=== PATIENT | female | born 2000 | race Caucasian/White ===

== ENCOUNTER 2019-06-28 11:55 | Emergency (ER) | payer SELFPAY ==
[2019-06-28 12:00] VITALS: BP 120/68; PULSE 80; TEMP 98; BMI 29.0
--- NOTE | 2019-06-28 12:47 | PDOC ---
History of Present Illness - General Chief Complaint: Vaginal Sxs Stated Complaint: VAGINAL PAIN Time Seen by Provider: 06/28/19 12:03 History Source: Patient Exam Limitations: No Limitations - History of Present Illness Travel History: No Initial Comments: 06/28/19 12:46 HISTORY OF PRESENT ILLNESS: Is a 18-year-old woman denies medical history presents to the emergency department for evaluation of dysuria and pain to her vagina for the past 4 to 5 days. Patient was seen and evaluated by her primary doctor who gave her triamcinolone cream and prednisone. She reports having a rash to her vagina extending into her inner thigh. Patient denies any fevers, chills, back pain, vaginal bleeding, vaginal discharge. Patient reports she is currently sexually active with one male partner over the past few months and reports having protected oral and vaginal intercourse every time throughout her relationship. No recent travel or sick contacts. PAST MEDICAL HISTORY: Denies past medical history SURGICAL HISTORY: Denies ALLERGIES: No known drug allergies REVIEW OF SYSTEMS General/Constitutional: Denies fever or chills. Denies weakness, weight change. HEENT: Denies change in vision. Denies ear pain or discharge. Denies sore throat. Cardiovascular: Denies chest pain or shortness of breath. Respiratory: Denies cough, wheezing, or hemoptysis. Gastrointestinal: Denies nausea, vomiting, diarrhea or constipation. Denies rectal bleeding. Genitourinary: See HPI Musculoskeletal: Denies joint or muscle swelling or pain. Denies neck or back pain. Skin and breasts: Denies rash or easy bruising. Neurologic: Denies headache, vertigo, loss of consciousness, or loss of sensation. Psychiatric: Denies depression or anxiety. Endocrine: Denies increased thirst. Denies abnormal weight change. Hematologic/Lymphatic: Denies anemia, easy bleeding, or history of blood clots. Allergic/Immunologic: Denies hives or skin allergy. Denies latex allergy. PHYSICAL EXAM General Appearance: Well-appearing, appropriately dressed. No apparent distress , no intoxication. HEENT: EOMI, PERRLA, normal ENT inspection, normal voice, TMs normal, pharynx normal. No conjunctival pallor. No photophobia, scleral icterus. Neck: Supple. Trachea midline. No tenderness, rigidity, carotid bruit, stridor , lymphadenopathy, or thyromegaly. Respiratory/Chest: Lungs CTAB. No shortness of breath, chest tenderness, respiratory distress, accessory muscle use. No crackles, rales, rhonchi, stridor , wheezing, dullness Cardiovascular: RRR. S1, S2. No JVD, murmur, bradycardia, tachycardia. Vascular Pulses: Dorsalis-Pedis (R): 2+, Dorsalis-Pedis (L): 2+ Gastrointestinal/Abdominal: Normal bowel sounds. Abdomen soft, non-distended. No tenderness or rebound tenderness. No organomegaly, pulsatile mass, guarding, hernia, hepatomegaly, splenomegaly. Lymphatic: No adenopathy, tenderness. Musculoskeletal/Extremities: Normal inspection. FROM of all extremities, normal capillary refill. Pelvis Stable. No CVA tenderness. No tenderness to extremities, pedal edema, swelling, erythema or deformity. Integumentary: Appropriate color, dry, warm. No cyanosis, erythema, jaundice or rash Neurologic: partnership manager II-XII intact. Fully oriented, alert. Appropriate mood/affect. Motor strength 5/5. No appreciable EOM palsy, facial droop or sensory deficit. Past History - Past Medical History Allergies/Adverse Reactions: Allergies Allergy/AdvReac Type Severity Reaction Status Date / Time No Known Allergies Allergy Verified 06/28/19 12:00 Home Medications: Ambulatory Orders Fluconazole 150 mg PO ONCE #1 tablet 06/28/19 Valacyclovir HCl [Valtrex -] 1,000 mg PO BID #20 tablet 06/28/19 COPD: No - Psycho Social/Smoking Cessation Hx Smoking History: Never smoked *Physical Exam - Vital Signs Last Vital Signs Temp Pulse Resp BP Pulse Ox 98 F 80 18 120/68 100 06/28/19 11:57 06/28/19 11:57 06/28/19 11:57 06/28/19 11:57 06/28/19 11:57 - Physical Exam General Appearance: Yes: Appropriately Dressed. No: Apparent Distress Comments:: 06/28/19 13:16 RN Lasha present as refractory tile helper during pelvic exam. Female Pelvic Exam: positive: cervical os closed, normal adnexa, normal size ovaries, discharge (Thick white caseous discharge present in the vaginal vault) . negative: normal external exam (Excoriated tissue present to the rights outer labia extending into the inner thigh. Scant vesicular lesions present in the excoriated areas whose appearance is consistent with HSV-2 infection), CMT, Bartholin mass, adnexal tenderness, vaginal bleeding Gastrointestinal/Abdominal: positive: Normal Bowel Sounds, Soft. 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 Will discharge home with prescriptions for Diflucan and valacyclovir. I discussed the physical exam findings, ancillary test results and final diagnoses with the patient. I answered all of the patient's questions. The patient was satisfied with the care received and felt comfortable with the discharge plan and treatment plan. The patient will call their primary care physician within 24 hours to arrange follow-up and will return to the Emergency Department with any new, persistent or worsening symptoms. Discharge - Discharge Information Problems reviewed: Yes Clinical Impression/Diagnosis: Vaginal candidiasis Genital herpes Qualifiers: Herpes simplex infection site: vulvovaginitis Qualified Code(s): A60.04 - Herpesviral vulvovaginitis Condition: Stable Disposition: HOME - Admission No - Additional Discharge Information Prescriptions: Fluconazole 150 mg PO ONCE #1 tablet Valacyclovir HCl [Valtrex -] 1,000 mg PO BID #20 tablet - Follow up/Referral CallBack Reminder: f/u cultures/HSV - Patient Discharge Instructions Additional Instructions: You been treated today with azithromycin 1 g by mouth for treatment of presumed chlamydia You have been treated with Rocephin 250 mg injection for treatment of presumned gonorrhea The herpes, gonorrhea and chlamydia testing will not be completed for the next few days. You may call [phone] and leave message for return phone call with lab results. Be sure to be clear with your name, birthdate, and phone number. Valacyclovir 1 g twice a day for the next 10 days. Fluconazole 150 mg once orally on 07/01 Always use condoms with the partners Followup with [employer] or PMD in one week for reevaluation and retesting. - Post Discharge Activity
[2019-06-28] MEDS ORDERED: FLUCONAZOLE 150 MG TABLET PO ONE ×2 (13:23→13:27)
[2019-06-28] MEDS ORDERED: AZITHROMYCIN 250 MG TABLET PO ONE (13:23)
[2019-06-28] MEDS ORDERED: AZITHROMYCIN 500 MG TABLET ONE (13:27)
[2019-06-28] MEDS ORDERED: LIDOCAINE HCL 1%, 10 MG/ML (20ML VIAL) ONE (13:28)
[2019-06-28 13:54] LABS: URINE APPEARANCE CLEAR; URINE BILIRUBIN NEGATIVE (NEGATIVE); URINE COLOR YELLOW; URINE GLUCOSE (UA) NEGATIVE (NEGATIVE); URINE KETONE NEGATIVE (NEGATIVE); URINE LEUK ESTERASE NEGATIVE (NEGATIVE); URINE NITRITE NEGATIVE (NEGATIVE); URINE PROTEIN NEGATIVE (NEGATIVE); URINE UROBILINOGEN 0.2 mg/dL (0.2-1.0)
== END 2019-06-28 14:13 | disposition home or self-care (01) ==
LOC: JERFT 11:55
DX: B37.3 Candidiasis of vulva and vagina (principal); A60.04 Herpesviral vulvovaginitis
CPT/HCPCS: 36415; 81003; 84703; 87070; 87086; 87205; 87491; 87529; 87591; 99283-25

== ENCOUNTER 2021-05-13 01:30 | Emergency (ER) | payer OTHER ==
[2021-05-13 02:07] VITALS: BP 121/82; PULSE 83; TEMP 98.3; BMI 32.1
[2021-05-13] MEDS ORDERED: ACETAMINOPHEN 325 MG TABLET (FP) PO ONE (02:49)
[2021-05-13] MEDS ORDERED: ACETAMINOPHEN 325 MG TABLET (FP) ONE (02:55)
[2021-05-13] MEDS ORDERED: LIDOCAINE 5% TOPICAL PATCH TP ONE (03:06)
[2021-05-13] MEDS ORDERED: LIDOCAINE 5% TOPICAL PATCH ONE (03:15)
[2021-05-13] MEDS ORDERED: METHOCARBAMOL 500 MG TABLET PO ONE (03:28)
[2021-05-13] MEDS ORDERED: METHOCARBAMOL 500 MG TABLET ONE (03:37)
[2021-05-13] MEDS ORDERED: LIDOCAINE PATCH REMOVAL MC SCH (22:00)
== END 2021-05-13 03:43 | disposition home or self-care (01) ==
LOC: JER 01:30
DX: M54.2 Cervicalgia (principal); V49.50XA Passenger injured in collision with unspecified motor vehicles in traffic accident, initial encounter
CPT/HCPCS: 99283-25

== ENCOUNTER 2022-05-15 09:20 | Emergency (ER) | payer OTHER ==
[2022-05-15 09:25] VITALS: BP 125/91; PULSE 101; RESP 18; TEMP 98; BMI 30.9
[2022-05-15] MEDS ORDERED: FLUCONAZOLE 150 MG TABLET PO ONE ×2 (10:14→10:26)
[2022-05-15 11:25] LABS: EPI CELLS 33 /uL (0-25.1); HYALINE CASTS 0 /uL (0-3.1); URINE APPEARANCE CLEAR; URINE BACTERIA 207 /uL (0-1359); URINE BILIRUBIN NEGATIVE (NEGATIVE); URINE COLOR YELLOW; URINE GLUCOSE (UA) NEGATIVE (NEGATIVE); URINE KETONE NEGATIVE (NEGATIVE); URINE LEUK ESTERASE 1+ (NEGATIVE); URINE NITRITE NEGATIVE (NEGATIVE); URINE PROTEIN NEGATIVE (NEGATIVE); URINE RBC 2 /uL (0-23.9); URINE UROBILINOGEN 0.2 mg/dL (0.2-1.0); URINE WBC 7 /uL (0-25.8)
== END 2022-05-15 11:37 | disposition home or self-care (01) ==
LOC: JERFT 09:20
DX: N39.0 Urinary tract infection, site not specified (principal)
CPT/HCPCS: 36415; 81003; 87077; 87086; 87491; 87591; 87661; 99283-25

== ENCOUNTER 2022-11-02 23:05 | Emergency (ER) | payer OTHER ==
[2022-11-02 23:10] VITALS: BP 139/88; PULSE 65; RESP 18; TEMP 98; BMI 32.3
== END 2022-11-03 01:30 | disposition left against medical advice (07) ==
LOC: JER 23:05
DX: R05.9 Cough, unspecified (principal); J34.89 Other specified disorders of nose and nasal sinuses
CPT/HCPCS: 99281-25

== ENCOUNTER → 2024-03-31 | Emergency (ER) | payer OTHER ==
[2024-03-31 11:45] VITALS: BP 125/83; PULSE 107; RESP 20; TEMP 98.4; BMI 38.5
[2024-03-31 14:27] LABS: THROAT:GRP A STREP NOT DETECTED (NOTDETECTED)
== END | disposition left against medical advice (07) ==
LOC: JERFT 11:40
DX: O99.513 Diseases of the respiratory system complicating pregnancy, third trimester (principal); J00 Acute nasopharyngitis [common cold]; J06.9 Acute upper respiratory infection, unspecified; O99.891 Other specified diseases and conditions complicating pregnancy; R09.81 Nasal congestion; R05.9 Cough, unspecified; Z3A.31 31 weeks gestation of pregnancy; Z20.822 Contact with and (suspected) exposure to COVID-19
CPT/HCPCS: 0241U-QW; 87651; 99283-25

== ENCOUNTER 2024-05-06 08:23 | Inpatient (IN) | payer OTHER ==
[2024-05-06] MEDS: LACTATED RINGERS SOLUTION 1,000 ML IV SCH (09:30)
[2024-05-06 09:36] LABS: BASO % 0.3 % (0-2.0); EOS % 1.3 % (0-4.5); HEMATOCRIT 36.7 % (32.4-45.2); HEMOGLOBIN 12.2 GM/dL (10.7-15.3); LYMPH % 20.5 % (8-40); MCH 28.8 pg (25.7-33.7); MCHC 33.2 g/dl (32.0-36.0); MEAN CELL VOLUME 86.7 fl (80-96); MEAN PLT VOLUME 9.6 fl (7.5-11.1); MONO % 5.8 % (3.8-10.2); NEUT % 72.1 % (42.8-82.8); PLATELET COUNT 248 10^3/uL (134-434); RBC 4.23 M/mm3 (3.60-5.2); RDW 14.5 % (11.6-15.6); WHITE BLOOD COUNT 12.7 K/mm3 (4.0-10.0)
[2024-05-06 09:55] LABS: INR 0.94 (0.83-1.09); PROTHROMBIN TIME (PATIENT) 10.6 SEC (9.7-13.0)
[2024-05-06 09:57] LABS: ACTIVATED PTT 26.8 SECONDS (25.2-36.5)
[2024-05-06 09:59] LABS: POTASSIUM 3.8 mmol/L (3.5-5.1)
[2024-05-06] MEDS ORDERED: OXYTOCIN 30 UNITS in 0.9% NS 30 UNIT/500 ML INFUS.BAG IVPB ONE (10:00)
[2024-05-06] MEDS: OXYTOCIN 30 UNITS in 0.9% NS 30 UNIT/500 ML INFUS.BAG IVPB SCH (10:00)
[2024-05-06 10:01] LABS: ALBUMIN 2.6 g/dl (3.4-5.0); BLOOD UREA NITROGEN 11.4 mg/dL (7-18); CALCIUM 9.2 mg/dL (8.5-10.1)
[2024-05-06 10:05] LABS: CREATININE 0.6 mg/dL (0.55-1.3)
[2024-05-06 10:06] LABS: BILIRUBIN,TOTAL 0.6 mg/dL (0.2-1); TOT PROT 7.1 g/dl (6.4-8.2)
[2024-05-06 10:26] VITALS: BMI 40.1
[2024-05-06] MEDS ORDERED: FENTANYL/BUPIVACAINE/NS/PF - PCEA - 50 ML DISP.SYRIN EP ONE (17:20)
[2024-05-06] MEDS ORDERED: NALOXONE HCL 0.4 MG/ML VIAL IVPUSH PRN (17:21)
[2024-05-06] MEDS ORDERED: BUPIVACAINE HCL/PF 0.25% (2.5MG/ML) 10 ML VIAL ONE ×2 (17:22→21:28)
[2024-05-06] MEDS ORDERED: FENTANYL CITRATE/PF 50 MCG/ML VIAL ONE ×2 (17:22→21:28)
[2024-05-06] MEDS: FENTANYL/BUPIVACAINE/NS/PF - PCEA - 50 ML DISP.SYRIN EP SCH (17:45)
[2024-05-06] MEDS ORDERED: LIDOCAINE HCL 1% PRESERVATIVE FREE - 30ML VIAL ONE (23:16)
[2024-05-06] MEDS: OXYTOCIN 20 UNITS in 0.9% NS 20 UNIT/1,000 ML INFUS.BAG IV SCH (23:21)
[2024-05-06] MEDS ORDERED: METHYLERGONOVINE MALEATE 0.2 MG/1 ML AMP IM PRN (23:45)
[2024-05-06] MEDS ORDERED: BENZOCAINE 28 GM HEMORRHOIDAL OINTMENT TP PRN (23:45)
[2024-05-06] MEDS ORDERED: BENZOCAINE 20% 57 GM BOTTLE TP PRN (23:45)
[2024-05-06] MEDS ORDERED: WITCH HAZEL 50% (TUCKS) 40 PAD/JAR PAD TP PRN (23:45)
[2024-05-06] MEDS ORDERED: BISACODYL 10 MG SUPP.RECT RC PRN (23:45)
[2024-05-07] MEDS ORDERED: ACETAMINOPHEN 325 MG TABLET (FP) ONE (01:10)
[2024-05-07] MEDS: ACETAMINOPHEN 325 MG TABLET (FP) PO PRN (01:13)
[2024-05-07] MEDS: oxyCODONE HCL 5 MG TABLET PO PRN (01:49)
[2024-05-07] MEDS: ELECTROLYTE-148 SOLN 1,000 ML IV SCH (01:50)
[2024-05-07 08:48] LABS: BASO % 0.2 % (0-2.0); EOS % 0.1 % (0-4.5); HEMATOCRIT 32.4 % (32.4-45.2); HEMOGLOBIN 10.4 GM/dL (10.7-15.3); LYMPH % 16.3 % (8-40); MCH 27.9 pg (25.7-33.7); MCHC 32.1 g/dl (32.0-36.0); MEAN CELL VOLUME 86.9 fl (80-96); MEAN PLT VOLUME 9.9 fl (7.5-11.1); MONO % 9.9 % (3.8-10.2); NEUT % 73.5 % (42.8-82.8); PLATELET COUNT 222 10^3/uL (134-434); RBC 3.73 M/mm3 (3.60-5.2); RDW 14.6 % (11.6-15.6); WHITE BLOOD COUNT 15.1 K/mm3 (4.0-10.0)
[2024-05-07] MEDS: PRENATAL VITAMINS W/ FOLIC ACID TABLET (FP) PO SCH (10:04)
[2024-05-07] MEDS: FERROUS SO4 325 MG TABLET (FP) PO SCH (10:04)
[2024-05-07] MEDS: IBUPROFEN 600 MG TABLET (FP) PO PRN (10:04)
[2024-05-07 14:04] VITALS: RESP 18
[2024-05-07 18:02] VITALS: TEMP 97.9
[2024-05-07 21:52] VITALS: BP 127/85; PULSE 97
[2024-05-07] MEDS ORDERED: SENNOSIDES/DOCUSATE COMBO (SENNA PLUS) TABLET (UD) PO PRN (22:00)
== END 2024-05-08 15:19 | disposition home or self-care (01) | DRG 560 ==
LOC: JLDR 08:23 → J3W 05-07 02:21
PROVIDERS: ADMIT Obstetrics & Gynecology; ATTEND Obstetrics & Gynecology
PROC: 10E0XZZ Delivery of Products of Conception, External Approach (ICD-10-PCS; principal; 2024-05-06)
PROC: 0W8NXZZ Division of Female Perineum, External Approach (ICD-10-PCS; 2024-05-06)
PROC: 3E033VJ Introduction of Other Hormone into Peripheral Vein, Percutaneous Approach (ICD-10-PCS; 2024-05-06)
PROC: 10907ZC Drainage of Amniotic Fluid, Therapeutic from Products of Conception, Via Natural or Artificial Opening (ICD-10-PCS; 2024-05-06)
DX: O24.424 Gestational diabetes mellitus in childbirth, insulin controlled (principal); Z3A.37 37 weeks gestation of pregnancy; Z37.0 Single live birth
CPT/HCPCS: 36415; 59409; 80053; 82962; 85025; 85610; 85730; 86780; 86850; 86900; 86901